=== PATIENT | female | born 1980 | race Caucasian/White ===

== ENCOUNTER 2016-11-25 11:42 | Emergency (ER) | payer BC ==
[~2016-11-25] VITALS: Ht 157.5 cm; Wt 62.8 kg
[~2016-11-25 11:42] MED LIST: BACT800T5 PO; LORA10TA7
[2016-11-25 11:44] VITALS: BP 105/68; PULSE 82; RESP 16; TEMP 98; O2SAT 98
[2016-11-25] MEDS ORDERED: LORA-361 PO (11:52)
[2016-11-25] MEDS ORDERED: BACT800T5 PO (11:52)
[2016-11-25] MEDS ORDERED: LIDOCAINE 1%/EPINEPHrine 1:100,000 SOLN 20 ML VIAL INFIL ONE (12:15)
--- NOTE | 2016-11-25 12:24 | PD ---
HPI Chief Complaint: Skin Problem Time Seen by Provider: 12:01 Travel History International Travel<30 days: No Contact w/Intl Traveler<30days: No Traveled to known affect area: No History of Present Illness HPI This 36-year-old female is complaining of swelling and pain on the skin of the face. She went to her emergency room yesterday and diagnosed with infection. She was put on Bactrim and released. This area is becoming more swollen. There has not been any drainage. PFSH Past Medical History Medical History: Denies Significant Hx Diminished Hearing: No Tetanus Vaccination: > 5 Years Influenza Vaccination: Yes ?: Not : 1 Para: 0 Past Surgical History Surgical History: No Previous Surgery Social History Alcohol Use: Yes (1-2 DAYS WEEK) Tobacco Use: Yes (2-3 DAYS WEEK) Substance Use: No Allergies-Medications (Allergen,Severity, Reaction): Coded Allergies: No Known Allergies (Verified , 11/25/16) Reported Meds & Prescriptions Reported Meds & Active Scripts Active Reported Claritin (Loratadine) 10 Mg Tab 10 Mg PO DAILY Bactrim DS (Sulfamethoxazole-Trimethoprim) 800-160 Mg Tab 1 Tab PO BID Review of Systems General / Constitutional: No: Fever, Chills Eyes: No: Diploplia HENT: No: Headaches Cardiovascular: No: Chest Pain or Discomfort, Palpitations Respiratory: No: Cough, Shortness of Breath Gastrointestinal: No: Nausea Musculoskeletal: No: Myalgias Skin: Positive Lumps Neurologic: No: Weakness Physical Exam Narrative GENERAL: Well-developed female SKIN: Focused skin assessment warm/dry. HEAD: Atraumatic. Normocephalic. Just anterior to the external auditory canals at the hairline there is a small cystic swollen area is quite tender EYES: Pupils equal and round. No scleral icterus. No injection or drainage. ENT: No nasal bleeding or discharge. Mucous membranes pink and moist. NECK: Trachea midline. No JVD. MUSCULOSKELETAL: No obvious deformities. No clubbing. No cyanosis. No edema. NEUROLOGICAL: Awake and alert. No obvious cranial nerve deficits. Motor grossly within normal limits. Normal speech. PSYCHIATRIC: Appropriate mood and affect; insight and judgment normal. Data Data Last Documented VS Vital Signs Date Time Temp Pulse Resp B/P Pulse Ox O2 Delivery O2 Flow Rate FiO2 11/25/16 11:44 98.0 82 16 105/68 98 Orders Lidocai-Epi 1%-1:100,000 Inj (Xylocaine- (11/25/16 12:15) MDM Medical Decision Making Medical Screen Exam Complete: Yes Emergency Medical Condition: Yes Medical Record Reviewed: Yes Differential Diagnosis Differential includes abscess, cellulitis Narrative Course Is appears to be an abscess and pus was obtained with an I&D. Procedures Procedure Narrative After verbal consent was obtained the area of the abscess was anesthetized with 1% lidocaine with adrenaline. An incision with a scalpel was made and a small amount of pus was obtained. Because this is in a cosmetically important area I did not place a packing in the patient was kept to a minimum. Diagnosis Primary Impression: Abscess of face Disposition: DISCHARGE HOME Condition: Stable Remigio Gillis MD November 25, 2016 12:24
== END 2016-11-25 12:31 | disposition home or self-care (01) ==
LOC: PHEFT 11:42
DX: L02.01 Cutaneous abscess of face (principal); Z72.0 Tobacco use
CPT/HCPCS: 10060